=== PATIENT | female | born 1955 | race Caucasian/White ===

== ENCOUNTER → 2019-07-19 18:12 | Outpatient (CLI) | payer OTHER, SELFPAY ==
--- NOTE | 2019-07-19 18:21 | DI.MG.S_ITS ---
BILATERAL DIGITAL SCREENING MAMMOGRAM 3D/2D WITH CAD: 07/19/2019 CLINICAL: Routine screening. Comparison is made to exams dated: 08/22/2016 mammogram, 08/17/2014 mammogram, 11/19/2010 mammogram, and 08/07/2009 mammogram - [facility]. The tissue of both breasts is heterogeneously dense. This may lower the sensitivity of mammography. Current study was also evaluated with a Computer Aided Detection (CAD) system. No significant masses, calcifications, or other findings are seen in either breast. There has been no significant interval change. IMPRESSION: NEGATIVE There is no mammographic evidence of malignancy. A 1 year screening mammogram is recommended. This exam was interpreted at Station ID: [id number]. NOTE: For mammograms, a report in lay terms will be sent to the patient. Approximately 15% of breast malignancies will not be visualized mammographically. In the management of a palpable breast mass, a negative mammogram must not discourage biopsy of a clinically suspicious lesion. Electronically Signed By: Anuel santillan/yuliet:07/19/2019 19:08:33 letter sent: Normal Exam ACR BI-RADS Category 1: Negative 3341F
== END ==
PROVIDERS: Family Provider Family Medicine; PCP Family Medicine; Visit Provider Family Medicine
DX: Z12.31 Encounter for screening mammogram for malignant neoplasm of breast (principal)
CPT/HCPCS: 77063; 77067

== ENCOUNTER → 2019-07-20 09:20 | Outpatient (CLI) | payer OTHER, SELFPAY ==
[2019-07-20 10:09] LABS: Add Manual Diff / Slide Review NO; Basophils Absolute Auto 0 /uL (0-100); Basophils Percent Auto 0.9 % (0-2); Eosinophils Absolute Auto 200 /uL (0-450); Eosinophils Percent Auto 4.1 % (2-4); Hematocrit 40.8 % (36-46); Lymphocytes Absolute Auto 1600 /uL (1100-4500); Lymphocytes Percent Auto 38.6 % (25-40); Mean Corpuscular HGB Conc 34.3 % (30-36); Mean Corpuscular Hemoglobin 32.6 PG (26-34); Monocytes Absolute Auto 400 /uL (0-900); Monocytes Percent Auto 8.5 % (3-14); Neutrophils Absolute Auto 2000 /uL (1500-7000); Neutrophils Percent Auto 47.9 % (50-75); Platelet Count 268 X10^3/uL (150-400); Red Cell Distribution Width 12.2 % (11.6-14.8); White Blood Cell Count 4.2 X10^3/uL (4.5-11.0)
[2019-07-20 10:35] LABS: Alanine Aminotransferase 18 IU/L (<35); Albumin 4.5 g/dL (3.5-5.0); Albumin Globulin Ratio 1.4 (1.0-2.8); Alkaline Phosphatase 77 U/L (38-126); Aspartate Aminotransferase 26 IU/L (14-36); BUN Creatinine Ratio 17.8 (6-22); Blood Urea Nitrogen 16 mg/dL (7-17); Calcium 9.3 mg/dL (8.4-10.2); Carbon Dioxide 29 mmol/L (22-32); Chloride 103 mmol/L (98-107); Cholesterol 246 mg/dL (140-199); Estimated Glomerular Filt Rate > 60.0 mL/min (>60); Globulin 3.2 g/dL (1.7-4.1); Glucose 105 mg/dL (80-110); HDL Cholesterol 74 mg/dL (40-60); HEMOLYSIS < 15 (0-50); LDL Cholesterol Calculated 150 mg/dL (<100); Potassium 3.9 mmol/L (3.4-5.1); Sodium 141 mmol/L (137-145); Total Protein 7.7 g/dL (6.3-8.2); Triglycerides 111 mg/dL (35-150)
[2019-07-20 11:06] LABS: Thyroid Stimulating Hormone 0.87 uIU/mL (0.47-4.68)
== END ==
PROVIDERS: PCP Family Medicine; Visit Provider Family Medicine
DX: Z13.0 Encounter for screening for diseases of the blood and blood-forming organs and certain disorders involving the immune mechanism (principal); Z13.1 Encounter for screening for diabetes mellitus; Z13.220 Encounter for screening for lipoid disorders; Z13.29 Encounter for screening for other suspected endocrine disorder; R89.9 Unspecified abnormal finding in specimens from other organs, systems and tissues
CPT/HCPCS: 36415; 80053; 80061; 84443; 85025

== ENCOUNTER → 2020-09-03 14:28 | Outpatient (CLI) | payer MEDICARE, OTHER, SELFPAY ==
--- NOTE | 2020-09-03 14:30 | DI.RAD.S_ITS ---
PROCEDURE: XR HIP W PEL IF DONE RT 2V INDICATIONS: RIGHT HIP PAIN TECHNIQUE: AP pelvis with lateral view(s) of the right hip(s). COMPARISON: None. FINDINGS: There is a severe degree of degenerative right hip joint osteoarthritis with [id number] articulation at the lateral acetabular roof. Qnah-aa-[id number] hip joint osteoarthritis is present on the left. Bones: No fractures or dislocations. Pelvic ring appears intact. No suspicious bony lesions. Soft tissues: The visualized bowel gas pattern is normal. No suspicious soft tissue calcifications. IMPRESSION: No trauma found but there is quite severe hip joint osteoarthritis on the right with [id number] articulation. Dictated by: Moise Ly M.D. on 09/03/2020 at 15:36 Approved by: Moise Ly M.D. on 09/03/2020 at 15:39
== END ==
PROVIDERS: PCP Family Medicine; Referring Provider Family Medicine; Visit Provider Family Medicine
DX: M25.551 Pain in right hip (principal); M16.0 Bilateral primary osteoarthritis of hip
CPT/HCPCS: 73502

== ENCOUNTER → 2020-09-05 09:08 | Outpatient (CLI) | payer MEDICARE, OTHER, SELFPAY ==
[2020-09-05 10:04] LABS: Alanine Aminotransferase 23 IU/L (<35); Albumin 4.3 g/dL (3.5-5.0); Albumin Globulin Ratio 1.2 (1.0-2.8); Alkaline Phosphatase 70 U/L (38-126); Aspartate Aminotransferase 29 IU/L (14-36); BUN Creatinine Ratio 15.8 (6-22); Bilirubin Total 0.7 mg/dL (0.2-1.3); Blood Urea Nitrogen 12 mg/dL (7-17); Calcium 9.1 mg/dL (8.4-10.2); Carbon Dioxide 31 mmol/L (22-32); Chloride 105 mmol/L (98-107); Cholesterol 243 mg/dL (140-199); Estimated Glomerular Filt Rate > 60.0 mL/min (>60); Globulin 3.5 g/dL (1.7-4.1); Glucose 100 mg/dL (80-110); HDL Cholesterol 88 mg/dL (40-60); HEMOLYSIS < 15 (0-50); LDL Cholesterol Calculated 130 mg/dL (<100); Potassium 4.2 mmol/L (3.4-5.1); Sodium 138 mmol/L (137-145); Total Protein 7.8 g/dL (6.3-8.2); Triglycerides 127 mg/dL (35-150)
[2020-09-05 10:43] LABS: Creatinine Urine Random 78.1 mg/dL
[2020-09-05 10:53] LABS: Hep C Virus Ab w/Reflex Quant REACTIVE s/c (NEGATIVE); Microalbumin Urine Random < 0.6 mg/dL (0-1.6)
== END ==
PROVIDERS: PCP Family Medicine; Referring Provider Family Medicine; Visit Provider Family Medicine
DX: I10 Essential (primary) hypertension (principal); Z11.59 Encounter for screening for other viral diseases
CPT/HCPCS: 36415; 80053; 80061; 82043; 82570; 86803; 87522

== ENCOUNTER → 2020-09-11 13:59 | Outpatient (CLI) | payer MEDICARE, OTHER, SELFPAY ==
[2020-09-11 15:32] LABS: COVID19 -Nasal RAPID Negative (Negative)
== END ==
PROVIDERS: PCP Family Medicine; Visit Provider Specialist
DX: Z20.822 Contact with and (suspected) exposure to COVID-19 (principal)
CPT/HCPCS: 87635; C9803

== ENCOUNTER 2020-09-13 08:55 | Day surgery (SDC) | payer MEDICARE, OTHER, SELFPAY ==
[2020-09-13] VITALS (7 sets, daily range): BP systolic 95–141; BP diastolic 57–87; PULSE 60–84; RESP 12–16; TEMP 36.3–37.1; O2SAT 93–98; BMI 22.1
[2020-09-13] MEDS: LACTATED RINGERS 1,000 ML 200 ML IV (09:36)
--- NOTE | 2020-09-13 10:15 | PM.HP.1 ---
History of Present Illness History of Present Illness Date Patient Seen: 09/13/20 Time Patient Seen: 10:15 Chief complaint: SDC Narrative: The patient is a woman here for screening colonoscopy. Her last exam was 5 years ago. She has a personal history of polyps. Patient History Family & Social History Social History: household members spouse Tobacco & Substance use: Smoking Status Former smoker alcohol intake current alcohol intake frequency 0-2 drinks per day Substance Use Type marijuana Meds Home Medications and Allergies Home Medications Medication Instructions Recorded Confirmed Type biotin 1,000 mcg chewable tablet 1,000 mcg PO DAILY 09/03/20 09/13/20 History glucosamine HCl 1,500 mg tablet 1,500 mg PO DAILY 09/03/20 09/13/20 History calcium citrate 1 mg PO DAILY 09/13/20 09/13/20 History magnesium 1 mg PO DAILY 09/13/20 09/13/20 History multivitamin 1 mg PO DAILY 09/13/20 09/13/20 History Allergies Allergy/AdvReac Type Severity Reaction Status Date / Time morphine AdvReac Intermediate Nausea Verified 09/13/20 09:09 Review of Systems Review of Systems ROS: Yes All systems reviewed with the patient and are negative except as otherwise documented Exam Vital Signs (past 8 hours): - 09/13/20 09:27 Temperature 97.8 F Pulse Rate 84 Respiratory Rate 12 Blood Pressure 141/87 H Pulse Oximetry 98 Oxygen Delivery Method Room Air Narrative Exam Narrative: Pleasant cooperative patient no apparent distress. Lungs are clear to auscultation. No rales or rhonchi. Heart regular rate and rhythm no murmur gallop. Abdomen is soft nontender without mass. No obvious hernias. Patient is alert and oriented x3. Assessment & Plan Assessment & Plan narrative: The patient for a screening colonoscopy. I have discussed the procedure with them. Risks of bleeding, perforation which would necessitate major operation, failure to find remove all lesions, the potential tattoo were all discussed. All questions were answered. They wished to proceed.
--- NOTE | 2020-09-13 10:16 | PM.PREOP ---
Pre-operative Note COVID-19 COVID-19 status: Negative Result date/Date tested (Pos, Neg/Pending): 09/12/20 Interval Note History & Physical reviewed/Exam performed by Physician: Yes Changes to H&P: No ASA Class (for procedural sedation): I
[2020-09-13] MEDS: ONDANSETRON 4 MG/2 ML INJ IV (11:04)
[2020-09-13] MEDS: MIDAZOLAM 5 MG/5 ML VIAL IV (11:05)
--- NOTE | 2020-09-13 11:05 | PM.OP.ENDO ---
Operative Date/Time/Diagnoses Date of procedure: 09/13/20 Time of procedure: 11:05 Pre-op diagnosis: Personal history of polyps. Last colonoscopy 5 years ago. Post-op diagnosis: same Procedure & Clinicians Study performed: Colonoscopy Same procedure as scheduled: Yes Indications: Screening Surgeon: Bucky Kim Procedure Notes SCOAP/Timeout: Performed Procedure in detail: The patient was placed in the left lateral decubitus position and underwent IV sedation directed by the surgeon consisting of fentanyl and Versed. Digital exam was unremarkable. The scope was inserted and advanced through the rectum into the sigmoid, descending, transverse, and ascending colon. There was extensive pancolonic diverticulosis noted.. The cecum was reached identified by the ileocecal valve and the appendiceal opening The scope was gradually brought out. No Polyps were found. The scope ultimately was retroflexed in the rectum. The appearance was remarkable for small internal hemorrhoids without ulceration.. The scope was removed and the patient tolerated the procedure well. The prep was very good. Scope withdrawal time: 8 minutes Sedation minutes: 21 Findings: diverticulosis (Ariza colonic) and internal hemorrhoids (Small) Specimen(s): none sent Complications: none Post-procedure Recommendations: Colonscopy in 5 years Follow up: as needed Disposition: PACU
[2020-09-13] MEDS: fentaNYL 250 MCG/5 ML INJ IV (11:06)
== END 2020-09-13 12:05 | disposition home or self-care (01) ==
PROVIDERS: PCP Family Medicine; Referring Provider Family Medicine; Visit Provider Specialist
PROC: 0DJD8ZZ Inspection of Lower Intestinal Tract, Via Natural or Artificial Opening Endoscopic (ICD-10-PCS; CPT 45378; principal; 2020-09-13 10:00)
DX: Z12.11 Encounter for screening for malignant neoplasm of colon (principal); Z86.010 Personal history of colon polyps; K57.30 Diverticulosis of large intestine without perforation or abscess without bleeding; K64.8 Other hemorrhoids
CPT/HCPCS: G0121; 99152; J2250; J2405; J3010

== ENCOUNTER → 2020-09-21 12:14 | Outpatient (CLI) | payer MEDICARE, OTHER, SELFPAY ==
[2020-09-21 12:53] LABS: Add Manual Diff / Slide Review NO; Basophils Absolute Auto 0 /uL (0-100); Eosinophils Absolute Auto 100 /uL (0-450); Eosinophils Percent Auto 2.2 % (2-4); Hematocrit 39.4 % (36-46); Hemoglobin 13.1 g/dL (12.0-16.0); Lymphocytes Absolute Auto 1600 /uL (1100-4500); Lymphocytes Percent Auto 38.7 % (25-40); Mean Corpuscular HGB Conc 33.3 % (30-36); Mean Corpuscular Hemoglobin 30.9 PG (26-34); Mean Corpuscular Volume 92.7 fL (80-100); Monocytes Absolute Auto 400 /uL (0-900); Monocytes Percent Auto 9.1 % (3-14); Neutrophils Absolute Auto 2100 /uL (1500-7000); Platelet Count 245 X10^3/uL (150-400); Red Blood Cell Count 4.25 X10^6/uL (4.0-5.2); Red Cell Distribution Width 12.7 % (11.6-14.8); White Blood Cell Count 4.2 X10^3/uL (4.5-11.0)
[2020-09-21 12:58] LABS: BUN Creatinine Ratio 21.6 (6-22); Blood Urea Nitrogen 16 mg/dL (7-17); Calcium 9.2 mg/dL (8.4-10.2); Carbon Dioxide 31 mmol/L (22-32); Chloride 104 mmol/L (98-107); Estimated Glomerular Filt Rate > 60.0 mL/min (>60); Glucose 96 mg/dL (80-110); HEMOLYSIS < 15 (0-50); Potassium 4.3 mmol/L (3.4-5.1); Sodium 137 mmol/L (137-145)
[2020-09-21 13:00] LABS: Hemoglobin A1C% w Est Avg Glu 5.2 % (4.0-6.0)
== END ==
PROVIDERS: PCP Family Medicine; Referring Provider Orthopaedic Surgery Adult Reconstructive Orthopaedic Surgery; Visit Provider Orthopaedic Surgery Adult Reconstructive Orthopaedic Surgery
DX: Z01.812 Encounter for preprocedural laboratory examination (principal); R73.9 Hyperglycemia, unspecified
CPT/HCPCS: 36415; 80048; 83036; 85025

== ENCOUNTER → 2020-09-25 12:21 | Outpatient (CLI) | payer MEDICARE, OTHER, SELFPAY ==
--- NOTE | 2020-09-25 12:23 | DI.MG.S_ITS ---
BILATERAL DIGITAL SCREENING MAMMOGRAM 3D/2D WITH CAD: 09/25/2020 CLINICAL: Routine screening. Comparison is made to exams dated: 07/19/2019 mammogram, 08/22/2016 mammogram, and 08/17/2014 mammogram - [facility]. The tissue of both breasts is heterogeneously dense. This may lower the sensitivity of mammography. Current study was also evaluated with a Computer Aided Detection (CAD) system. There are stable benign calcifications in the left breast. No significant masses, calcifications, or other findings are seen in either breast. There has been no significant interval change. IMPRESSION: BENIGN There is no mammographic evidence of malignancy. A 1 year screening mammogram is recommended. This exam was interpreted at Station ID: [id number]. NOTE: For mammograms, a report in lay terms will be sent to the patient. Approximately 15% of breast malignancies will not be visualized mammographically. In the management of a palpable breast mass, a negative mammogram must not discourage biopsy of a clinically suspicious lesion. Electronically Signed By: Johnnie Heart acr/yuliet:09/25/2020 13:23:13 letter sent: Normal Exam ACR BI-RADS Category 2: Benign Finding(s) 3342F
== END ==
PROVIDERS: PCP Family Medicine; Referring Provider Family Medicine; Visit Provider Family Medicine
DX: Z12.31 Encounter for screening mammogram for malignant neoplasm of breast (principal); M85.852 Other specified disorders of bone density and structure, left thigh; Z78.0 Asymptomatic menopausal state; I10 Essential (primary) hypertension; Z87.891 Personal history of nicotine dependence
CPT/HCPCS: 77063; 77067; 77080

== ENCOUNTER → 2020-10-08 11:07 | Outpatient (CLI) | payer MEDICARE, OTHER, SELFPAY ==
[2020-10-08 13:10] LABS: COVID19 -Nasal RAPID Negative (Negative)
== END ==
PROVIDERS: PCP Family Medicine; Visit Provider Physician Assistant
DX: Z01.812 Encounter for preprocedural laboratory examination (principal); Z20.822 Contact with and (suspected) exposure to COVID-19
CPT/HCPCS: 87635; C9803

== ENCOUNTER 2020-10-10 05:58 | Day surgery (SDC) | payer MEDICARE, OTHER, SELFPAY ==
[2020-10-10] VITALS (19 sets, daily range): BP systolic 71–160; BP diastolic 46–84; PULSE 60–82; RESP 12–20; TEMP 36.1–36.8; O2SAT 90–100; BMI 22.2
[2020-10-10] MEDS: LACTATED RINGERS 1,000 ML 42 ML IV (07:31)
--- NOTE | 2020-10-10 07:35 | PM.PREOP ---
Pre-operative Note COVID-19 COVID-19 status: Negative Result date/Date tested (Pos, Neg/Pending): 10/08/20 Interval Note History & Physical reviewed/Exam performed by Physician: Yes Changes to H&P: No H&P completed within 30 days and has changed as indicated here:: Plan for right anterior LUCRETIA
[2020-10-10] MEDS: CEFAZOLIN 2 GM/100 ML FROZ.PIGGY IV ×2 (07:48→16:42)
--- NOTE | 2020-10-10 08:00 | DI.RAD.S_ITS ---
PROCEDURE: XR PELVIS 1-2V INDICATIONS: RIGHT ANTERIOR HIP TECHNIQUE: 1 view of the lower pelvis acquired. COMPARISON: [facility] [place], CR, XR PELVIS 1 OR 2 VIEWS, 09/11/2020, 11:38. FINDINGS: Bones: Patient is status post right total hip arthroplasty, with hardware components in expected positions. The hip joint appears congruent. The visualized bony structures appear intact. Degenerative change of the left hip. Soft tissues: Overlying postoperative changes are noted. No suspicious soft tissue densities. IMPRESSION: Satisfactory appearance of the right total hip arthroplasty. Dictated by: Anuel Rogers M.D. on 10/10/2020 at 11:15 Approved by: Anuel Rogers M.D. on 10/10/2020 at 11:16
--- NOTE | 2020-10-10 08:26 | SUR.OPER ---
Supine on padded [place] table with bilateral legs secured in padded positioning boots and suspended in positioning spars, operative leg in traction per surgeon. Head on one pillow. Arm on non-operative side secured on padded armboard <90 degrees abduction. Arm on operative side padded and resting across chest then secured with tape over sheet. Padded perineal post in place per surgeon.
[2020-10-10] MEDS: ROPIVACAINE 0.5% PF 5 MG/ML 20ML VIAL 40 ML INJ (08:50)
[2020-10-10] MEDS: KETOROLAC 30 MG/ML VIAL INJ (08:51)
[2020-10-10] MEDS: MORPHINE 4 MG/ML INJ INJ (08:52)
[2020-10-10] MEDS: SODIUM CHLORIDE IRRIG SOLUTION 250 ML, POVIDONE-IODINE SPONGE STICKS 1 APPLIC IRR (09:08)
--- NOTE | 2020-10-10 10:08 | P.OP_ITS ---
Operative Date/Time/Diagnoses Date of procedure: 10/10/20 Time of procedure: 10:08 Pre-op diagnosis: right hip OA Post-op diagnosis: same Procedure & Clinicians Procedure: Right anterior LUCRETIA Same procedure as scheduled: Yes Indications: right hip OA Surgeon: Richard Espitia Educational Paraprofessional: Brice Archer Anesthesia Type: General and Spinal Operative Notes Findings: Right hip osteoarthritis with eburnation of the subchondral bone as well as head osteophytes. Closure Type: primary Specimen(s): none sent Prosthetic devices, grafts, tissues, transplants, or devices: Viveros and nephew 50 mm R3 cup 50 x 32 mm neutral offset polyethylene liner 1x 35mm screw 1x 30mm screw 1x 20mm screw Size 5 standard offset anthology stem Oxinium 32-3 femoral head Estimated Blood Loss (mL): 200 Procedure in detail: Patient was met in the preoperative holding area where the site and side of surgery were marked by . All last minute questions were answered. Her informed consent had been signed in clinic but was also reviewed the preoperative holding area. Patient was then brought back in the operating room work room where she received a spinal anesthetic she was then induced under general anesthesia on the [place] table. Bilateral feet were then well padded and placed in [place] table boots. The right lower extremity was then prepped and draped in normal sterile fashion. A surgical time-out was performed verifying the site and side of surgery as well as the name of the patient. A 7 cm long incision approximately 2 cm distal and 1 cm lateral to the ASIS aiming towards the fibular head remains in using 10. Blade. Electrocautery was used to dissect down to the level the tensor fascia. A new 10. Blade was then used to incise the tensor fascia and Allis clamp was placed on the medial leaflet the tensor muscle itself was then reflected laterally. A Cobra was then placed over the superior aspect of the femoral neck and then Meyerding was then placed over the lateral aspect of the rectus femoris and retracted medially. This gave us exposure to the ascending branches of the femoral circumflex vessels these were coagulated using electrocautery. A 2nd Cobra retractor was then placed under the inferior aspect of the femoral neck and a bent Hohmann was placed over the superior lip of the acetabulum to give us good exposure to the anterior capsule. Inverted T-shaped capsulotomy was then performed in the superior and inferior leaflets were tagged with FiberWire suture. Cobra retractors were then moved intracapsularly. This gave us good exposure to the femoral neck. A reciprocating saw was then used to make a femoral neck cut. This neck cut length was based off our preoperative template. Bent Hohmann retractors then placed over the superior lip of the acetabulum as well as the posterior lip of the acetabulum because good acetabular exposure. Pulvinar was then removed using electrocautery and suction. I began reaming with a 42 mm Reamer tip set medialized down to the base the fossa. I then brought in fluoroscopy to guide reaming. Our fluoroscopic images were match to her standing preoperative template films. We then reamed with a 44 followed by 5 by 2s up to a size 48. At this 0.49 mm Reamer was then reamed to final time and a 50 mm R3 cup was then selected. This was placed under fluoroscopic guidance. The cup had okay purchase but it was not great. For this reason I placed 3 screws. All screws had good purchase. A 52 by 32 neutral offset liner was then impacted verifying the all the tabs were well seated within the acetabular cup. I then turned my attention to the femoral side a femoral elevator hook was placed under the posterior aspect of the femur the femur was then externally rotated to 120? extended to the floor and adducted. A bent Hohmann was placed over the superior aspect of the superior leaflet the capsulotomy and the capsulotomy was further released off the shoulder of the greater trochanter. A large single prong retractor was then placed over the greater trochanter and a M ueller retractor was placed over the calcar to give us good exposure. A controlled release of the short external rotators was then performed in the LL and the femur was able to be elevated further up into the incision. A canal finer was then used followed by ursula barney broach followed by 1. Broach up to a size 5. A size 5 we calcar reamed. Placed a standard offset neck with a 32+ 0 head and reduced the hip fluoroscopy was brought in we were long bike probably half a cm. The hip was then dislocated the trials were removed and a size 4 broach was then countersunk and calcar planed down to level of countersink. We then replaced with a size 5 broach and trialed again with a 32-3 head. This was stable with maximal external rotation as well as 90? of external rotation and full extension to the floor. We were still a couple mm long the due to the laxity in her hip I do not want to make hernia shorter as I believe she will have instability. Trial components removed a size 5 anthology stem was placed followed by 32-3 Oxinium head on the trunnion. This was then reduced a final time local anesthetic was then infiltrated into the superior and inferior leaflets of the capsule and Betadine solution was placed into the wound allowed to sit for several minutes prior to being lavage away with copious normal saline. The capsulotomy was then repaired using a running Ethibond suture followed by repair of the tensor fascia using a #0 running locking Vicryl followed by 2-0 Vicryl in the subcutaneous layer followed by 3-0 Stratafix in subcuticular layer followed by Dermabond and Aquacel dressing. Complications: none Post-operative Condition: stable Disposition: PACU Plan for aftercare: 24 hours post-op abx, WBAT RLE, anterior hip precautions, ASA 81mg BID for 6 weeks for DVT prophylaxis
[2020-10-10] MEDS: LORazepam 2 MG/ML INJ 0.25 MG IV (10:39)
[2020-10-10] MEDS: fentaNYL 100 MCG/2 ML INJ IV (10:52)
[2020-10-10] MEDS: ONDANSETRON 4 MG/2 ML INJ IV (10:58)
--- NOTE | 2020-10-10 11:14 | SUR.PHASEI ---
Report called to KANIKA Gerard. Pt feeling better with her right shoulder pain now and Dr Brannon and Dr Espitia by earlier suggested Fentanyl iv which was given and pt does state pain better now. Plan to take up to room in 10 minutes
--- NOTE | 2020-10-10 11:19 | SUR.PHASEI ---
Pt transferred to floor by malka Murillo and roberto Hernandez in stable condition with no c/o
[2020-10-10] MEDS: LACTATED RINGERS 1,000 ML 125 ML IV (12:30)
--- NOTE | 2020-10-10 12:44 | PC.ADMIT ---
Addendum entered by Rajani Mancilla R.N. 10/10/20 14:44: Pt is up with PT ambulating in [place] and on her way to do stairs so that patient can d/c home this pm. Admission complete. Pt denies pain and has not voided at this time. Original Note: [email or web address] [place] Admission Note:Pt arrived from PACU with no pain, Spinal effective soft BPs, no nausea and minimal c/o pain to L shoulder, this has been reported to Nupur, who saw Pt in PACU and does feel this is positional r/t surgery. CMS + x4 PP +, brisk DISTRIBUTION TECHNICIAN. The patient,Tootie Mead,65 y/o, was given written information regarding hospital policies, unit procedures and contact persons. Patient's smoking status: Former smoker. Vital Signs - 8 hr 10/10/20 06:48 10/10/20 10:20 10/10/20 10:22 Temperature 97.0 F L 98.2 F Pulse Rate 70 79 80 Respiratory Rate 17 12 13 Blood Pressure 160/84 H 71/46 L 78/49 L Pulse Oximetry 100 90 L 99 10/10/20 10:24 10/10/20 10:30 10/10/20 10:35 Temperature Pulse Rate 77 64 66 Respiratory Rate 17 15 16 Blood Pressure 78/49 L 89/53 L 91/57 L Pulse Oximetry 99 100 100 10/10/20 10:40 10/10/20 10:45 10/10/20 10:50 Temperature Pulse Rate 64 63 62 Respiratory Rate 14 15 20 Blood Pressure 93/60 109/60 117/62 Pulse Oximetry 100 100 100 10/10/20 10:52 10/10/20 11:00 10/10/20 11:15 Temperature 97.3 F L 97.2 F L Pulse Rate 60 61 Respiratory Rate 16 18 Blood Pressure 116/63 106/58 L Pulse Oximetry 100 100 10/10/20 11:30 10/10/20 11:58 Temperature 98.0 F Pulse Rate 66 Respiratory Rate 17 Blood Pressure 103/59 L Pulse Oximetry 95 96
--- NOTE | 2020-10-10 13:31 | PT.IIE ---
Current Diagnoses Unilateral primary osteoarthritis, right hip (10/10/20) Surgery Performed Operation Date: 10/10/20 07:45 Actual Procedures p Total Hip Arthroplasty/Anterior Approach(Right) - Richard Espitia MD Surgical History (Last Updated 10/01/20 @ 15:07 by Franca Maldonado, RN) H/O wrist surgery History of brain surgery (~1985) History of History of colonoscopy (~09/13/20) Medical History (Last Updated 10/01/20 @ 15:21 by Franca Maldonado, RN) Brain aneurysm (~1985) Former smoker History of colon polyps Osteopenia Primary osteoarthritis of right hip Ringing in ears Physical Therapy Inpatient Evaluation/Re-Eval M1 PT/OT-IP Prior Functional Status Start: 10/10/20 15:01 Freq: NEEDED Status: Active Protocol: Document 10/10/20 13:31 AB (Rec: 10/10/20 15:33 AB [id number]) Medical Review Prior Functional Status Medical History Reviewed Yes Communication able to make needs known Mobility and Gait pt stated that she is independent with all mobilities and ambulation without AD Social History Household Members spouse Living Arrangements House Number of Floors (Floors) 3 or More Floors Number of Stairs To Enter/Railing? no steps to enter but has 13 steps with L rail to get to main level of the house Home Environment Standard Height Toilet,High Toilet,Walk in Shower,Tub/ Shower Home Equipment Shower Seat without Backrest Additional Social History Comment has a standard walker, and one forearm crutch M2 PT-IP Current Condition Start: 10/10/20 15:01 Freq: NEEDED Status: Active Protocol: Document 10/10/20 13:31 AB (Rec: 10/10/20 15:33 AB [id number]) Physical Therapy Current Condition Current Condition Evaluation Date 10/10/20 Treatment Diagnosis s/p R LUCRETIA anterior approach; difficulty in walking Onset Date 10/10/20 Precautions Anterior Hip Precautions No Hip Extension,No Hip External Rotation Weight Bearing Status Weight Bearing Status Weight Bear as Tolerated Allowed Weight Bearing Amount (enter % RLE WBAT or #) (%) M3 PT-IP Subjective Start: 10/10/20 15:01 Freq: NEEDED Status: Active Protocol: Document 10/10/20 13:31 AB (Rec: 10/10/20 15:33 AB [id number]) Subjective Physical Therapy Visit Type Type Initial Evaluation Visit Start Time 13:31 Visit Stop Time 14:53 Total Visit Minutes 82 Number of SECURITIES SETTLEMENT PROCESSOR Visits 0 Physical Therapy Visit Comments Patient Comments pt is agreeable to do PT; stated that she wants to go home later today Therapy Pain Assessment Pain When Pain Assessed At Rest Pain Present Pain Present Pain Reported Location Right Posterior Hip Intensity 3 Scale Used Numeric (0 - 10) Pain Management Techniques Apply Cold,Modification of Treatment,Re-positioning, Timing of Activity with Medications M4 PT-IP Mobility and Gait Start: 10/10/20 15:01 Freq: NEEDED Status: Active Protocol: Document 10/10/20 13:31 AB (Rec: 10/10/20 15:33 AB [id number]) PT-Bed Mobility Assessment Supine to Sit Supine to Sit Standby Assistance Sit to Supine Sit to Supine Standby Assistance Scooting Scooting to Edge of Bed Standby Assistance PT-Transfer Assessment Sit to and From Stand Sit to and from Stand Standby Assistance,Contact Guard Assistance,1 Person Assistance,Use of Upper Extremities Equipment Transfer Assistive Device Gait Belt,Standard Walker Orthotic/Prosthetic Devices or Brace: No Transfers Transfer Destination Toilet Transfer Technique ambulated using standard walker Transfer Ability Level of Assist Standby Assistance,Contact Guard Assistance,1 Person Assistance,Use of Upper Extremities Comments Mobility Comments educated on hip precautions and provided with post-op folder. pt has a standard walker in her room and stated that she does not have a FWW. completed supine to sit SBA. pt was able to sit on EOB SBA . completed sit to stand CGA and ambulated in room using standard walker CGA. pt requires cues for hip precautions. agreed to do stairs. ambulated in hallway using standard walker 75 ft SBA to occasionally CGA and initial cues for hip precautions. educated on stair climbing. pt completed up/down steps holding on to L rail with B hands CGA and completed 2 sets . assisted pt back to her room. requested to use the toilet. ambulated using standard walker 20 ft SBA. completed toileting SBA and ambulated to the sink using std walker SBA and completed handwashing SBA . requested to go back to bed . completed sit to supine SBA. positioned in bed. call light and table placed within reach . reviewed precautions and which LE to move forward first with ambulation and which one ot backup first. pt continues to be confused. wrote down instructions and taped on pt's walker as visual reminder. informed nurse regarding pt's mobility level. Gait Assessment Gait Gait Assistance Required: Standby Assistance,Contact Guard Assist Distance (Feet) 75 Able to Maintain Weight Bearing Status Yes During Gait Assistive Devices Assistive Device Gait Belt,Standard Walker Orthotic/Prosthetic Devices or Brace: No Gait Deviations General Gait Pattern Antalgic,Decreased Feet Clearance Factors Limiting Gait Function Factors Limiting Gait Function Decreased Activity Tolerance, Decreased Strength,Limited Range of Motion,Pain,Poor Balance,Poor Safety Awareness Stair Climbing Assessment Evaluation Level of Assist On Stairs Contact Guard Assistance Devices Stair Climbing Assistive Devices Left Railing Technique/Endurance Stair Climbing Direction Ascend and Descend Stair Climbing Technique Step to Step Number of Steps Climbed 3 Query Text: Stair Climbing Set # Repetitions (reps) 2 PT-Balance Assessment Sitting Balance and Reactions Static Sitting Balance Ability Good Dynamic Sitting Balance Ability Good Standing Balance and Reactions Static Standing Balance Ability Fair Dynamic Standing Balance Ability Fair Device Used std walker M5 PT-IP Objective Assessments Start: 10/10/20 15:01 Freq: NEEDED Status: Active Protocol: Document 10/10/20 13:31 AB (Rec: 10/10/20 15:33 AB [id number]) Orientation Orientation/Cognition Level of Alertness Alert Orientation Name,Place,Situation Language Function Ability No Deficits Noted Safety Awareness Decreased Safety Awareness Memory Description Short Term Impaired Gross Range of Motion Lower Extremity ROM Assessment Within Functional Limits Strength Lower Extremity Strength Assessment Right Impaired Hip 3+/5 Knee 4+/5 Coordination Assessment Gross Coordination Gross Coordination WNL Muscle Tone Muscle Tone WNL Yes M6 PT-IP Treatment Start: 10/10/20 15:01 Freq: NEEDED Status: Active Protocol: Document 10/10/20 13:31 AB (Rec: 10/10/20 15:33 AB [id number]) Physical Therapy Treatment Education Education Provided Precautions,Weight Bearing Status,Post-Op Packet,Safety M7 PT-IP Assessment and Plan Start: 10/10/20 15:01 Freq: NEEDED Status: Active Protocol: Document 10/10/20 13:31 AB (Rec: 10/10/20 15:33 AB [id number]) PT Summary Assessment and Plan Potential Rehabilitation Potential Good Status of Condition at Evaluation Stable Summary Impairments Pain,ROM,Strength,Balance, Coordination,Sensation, Cognition,Bed Mobility, Transfers,Gait,Activity Tolerance Assessment Summary pt requiring SBA to CGA with mobility using std walker and plans to go home with spouse to assist her. pt stated that she has outpt PT already set up. pt may go [facility] when medically stable. Goals Bed Mobility Goal Independent Transfer Goal Independent Gait Goal Independent Gait Distance 200 Other Goals independent ambulation using std walker up/down 13 steps L rail mod I Days to Meet Goals 3 Frequency of Treatment Frequency Of Treatment Twice a Day Treatment Plan Physical Therapy Treatment Plan Bed Mobility Training,Transfer Training,Gait Training, Therapeutic Exercise,Balance Retraining,Post Op Education, Discharge Planning,Hot or Cold Pack,Neuromuscular Re-ed, Coordination Retraining,Manual Therapy Recommendations To Nursing Amount of Assist Needed 1 Person Assist Discharge Recommendations PT Discharge Recommendations Home with Assistance, Outpatient PT Transportation Needs at Discharge Private Vehicle
[2020-10-10 15:06] LABS: Add Manual Diff / Slide Review NO; Basophils Absolute Auto 0 /uL (0-100); Basophils Percent Auto 0.1 % (0-2); Eosinophils Absolute Auto 0 /uL (0-450); Eosinophils Percent Auto 0.1 % (2-4); Hematocrit 33.6 % (36-46); Hemoglobin 11.1 g/dL (12.0-16.0); Lymphocytes Absolute Auto 500 /uL (1100-4500); Lymphocytes Percent Auto 4.9 % (25-40); Mean Corpuscular HGB Conc 32.9 % (30-36); Mean Corpuscular Hemoglobin 31.4 PG (26-34); Mean Corpuscular Volume 95.2 fL (80-100); Monocytes Absolute Auto 400 /uL (0-900); Monocytes Percent Auto 3.6 % (3-14); Neutrophils Absolute Auto 10200 /uL (1500-7000); Neutrophils Percent Auto 91.3 % (50-75); Platelet Count 220 X10^3/uL (150-400); Red Blood Cell Count 3.53 X10^6/uL (4.0-5.2); Red Cell Distribution Width 12.8 % (11.6-14.8); White Blood Cell Count 11.2 X10^3/uL (4.5-11.0)
[2020-10-10] MEDS: ACETAMINOPHEN 325 MG TABLET 650 MG PO (16:41)
== END 2020-10-10 17:51 | disposition home or self-care (01) ==
LOC: OR 06:04 → AC 06:09
PROVIDERS: PCP Family Medicine; Referring Provider Family Medicine; Visit Provider Orthopaedic Surgery Adult Reconstructive Orthopaedic Surgery
PROC: (CPT 27130; principal; 2020-10-10 07:45)
DX: M16.11 Unilateral primary osteoarthritis, right hip (principal); M25.751 Osteophyte, right hip; M81.0 Age-related osteoporosis without current pathological fracture
CPT/HCPCS: 27130; 36415; 72170; 76000; 85025; 97116; 97161; 97530; C1776; J0690; J1100; J1885; J2060; J2270; J2405; J2704; J3010

== ENCOUNTER → 2022-01-21 08:01 | Outpatient (CLI) | payer MEDICARE, OTHER, SELFPAY ==
[2020-10-10 14:21] VITALS: BMI 22.2
[2022-01-21 08:42] LABS: Add Manual Diff / Slide Review NO; Basophils Absolute Auto 0 /uL (0-100); Basophils Percent Auto 1.1 % (0-2); Eosinophils Absolute Auto 200 /uL (0-450); Eosinophils Percent Auto 5.5 % (2-4); Hematocrit 40.2 % (36-46); Hemoglobin 13.5 g/dL (12.0-16.0); Lymphocytes Absolute Auto 1800 /uL (1100-4500); Mean Corpuscular HGB Conc 33.6 % (30-36); Mean Corpuscular Hemoglobin 31.4 PG (26-34); Mean Corpuscular Volume 93.6 fL (80-100); Monocytes Absolute Auto 400 /uL (0-900); Monocytes Percent Auto 9.4 % (3-14); Neutrophils Absolute Auto 1400 /uL (1500-7000); Platelet Count 251 X10^3/uL (150-400); Red Blood Cell Count 4.29 X10^6/uL (4.0-5.2); Red Cell Distribution Width 12.6 % (11.6-14.8); White Blood Cell Count 3.8 X10^3/uL (4.5-11.0)
[2022-01-21 09:15] LABS: Glucose 101 mg/dL (80-110)
== END ==
PROVIDERS: PCP Family Medicine; Referring Provider Family Medicine; Visit Provider Family Medicine
DX: Z13.1 Encounter for screening for diabetes mellitus; D64.9 Anemia, unspecified
CPT/HCPCS: 36415; 82947; 85025

== ENCOUNTER → 2022-12-26 09:43 | Outpatient (CLI) | payer MEDICARE, OTHER, SELFPAY ==
[2020-10-10 14:21] VITALS: BMI 22.2
[2022-12-26 11:54] LABS: Hematocrit 39.8 % (36-46); Hemoglobin 13.6 g/dL (12.0-16.0); Mean Corpuscular HGB Conc 34.1 % (30-36); Mean Corpuscular Hemoglobin 32.1 PG (26-34); Mean Corpuscular Volume 94.1 fL (80-100); Platelet Count 240 X10^3/uL (150-400); Red Blood Cell Count 4.23 X10^6/uL (4.0-5.2); Red Cell Distribution Width 12.8 % (11.6-14.8); White Blood Cell Count 4.2 X10^3/uL (4.5-11.0)
[2022-12-26 14:38] LABS: Alanine Aminotransferase 24 IU/L (<35); Albumin 4.2 g/dL (3.5-5.0); Albumin Globulin Ratio 1.2 (1.0-2.8); Alkaline Phosphatase 64 U/L (38-126); Aspartate Aminotransferase 30 IU/L (14-36); BUN Creatinine Ratio 19.7 (6-22); Bilirubin Total 0.7 mg/dL (0.2-1.3); Blood Urea Nitrogen 15 mg/dL (7-17); Calcium 8.7 mg/dL (8.4-10.2); Carbon Dioxide 28 mmol/L (22-32); Chloride 104 mmol/L (98-107); Cholesterol 223 mg/dL (140-199); Estimated Glomerular Filt Rate > 60 mL/min (>60); Globulin 3.4 g/dL (1.7-4.1); Glucose 89 mg/dL (80-110); HDL Cholesterol 81 mg/dL (40-60); HEMOLYSIS < 15 (0-50); LDL Cholesterol Calculated 128 mg/dL (<100); Potassium 4.4 mmol/L (3.4-5.1); Sodium 139 mmol/L (137-145); Total Protein 7.6 g/dL (6.3-8.2); Triglycerides 71 mg/dL (35-150)
[2022-12-26 17:58] LABS: Neutrophils Absolute Manual 2184 /uL (3000-5900); Total Cells Counted 100
[2022-12-26 17:59] LABS: RBC Morphology Normal Morphology
== END ==
PROVIDERS: PCP Family Medicine; Referring Provider Family Medicine; Visit Provider Family Medicine
DX: D70.9 Neutropenia, unspecified (principal); E78.9 Disorder of lipoprotein metabolism, unspecified; I10 Essential (primary) hypertension; Z79.899 Other long term (current) drug therapy
CPT/HCPCS: 36415; 80053; 80061; 85025

== ENCOUNTER → 2023-02-02 14:02 | Outpatient (CLI) | payer MEDICARE, OTHER, SELFPAY ==
[2020-10-10 14:21] VITALS: BMI 22.2
--- NOTE | 2023-02-02 14:06 | DI.MG.S_ITS ---
BILATERAL DIGITAL SCREENING MAMMOGRAM 3D/2D WITH CAD: 02/02/2023 CLINICAL: Routine screening. Comparison is made to exams dated: 09/25/2020 mammogram, 07/19/2019 mammogram, and 08/22/2016 mammogram - [facility]. Both breasts are heterogeneously dense, which may obscure small masses (category c / 51-75% glandular tissue). Current study was also evaluated with a Computer Aided Detection (CAD) system. There are benign calcifications in both breasts. No significant masses, calcifications, or other findings are seen in either breast. There has been no significant interval change. IMPRESSION: BENIGN There is no mammographic evidence of malignancy. A 1 year screening mammogram is recommended. Based on the Tyrer Cuzick model (a risk assessment model) the patient's lifetime risk is 11.4% and her 10 year risk is 6.1%. According to the ACR, ACS, and NCCN guidelines, an annual breast MRI exam along with mammogram is recommended if the patient's lifetime risk is 20% or greater. This exam was interpreted at Station ID: [id number]. NOTE: For mammograms, a report in lay terms will be sent to the patient. Approximately 15% of breast malignancies will not be visualized mammographically. In the management of a palpable breast mass, a negative mammogram must not discourage biopsy of a clinically suspicious lesion. Electronically Signed By: Yaa gentile/yuliet:02/02/2023 16:19:57 letter sent: Normal Exam ACR BI-RADS Category 2: Benign Finding(s) [id number]
== END ==
PROVIDERS: PCP Family Medicine; Referring Provider Family Medicine; Visit Provider Family Medicine
DX: Z12.31 Encounter for screening mammogram for malignant neoplasm of breast (principal); D72.89 Other specified disorders of white blood cells
CPT/HCPCS: 36415; 77063; 77067

== ENCOUNTER → 2024-02-04 11:14 | Outpatient (CLI) | payer MEDICARE, OTHER, SELFPAY ==
[2023-12-23 09:09] VITALS: BMI 22.2
--- NOTE | 2024-02-04 11:16 | DI.MG.S_ITS ---
BILATERAL DIGITAL SCREENING MAMMOGRAM 3D/2D WITH CAD: 02/04/2024 CLINICAL: Routine screening. Comparison is made to exams dated: 02/02/2023 mammogram, 09/25/2020 mammogram, and 07/19/2019 mammogram - [facility]. Both breasts are heterogeneously dense, which may obscure small masses (category c / 51-75% glandular tissue). Current study was also evaluated with a Computer Aided Detection (CAD) system. There are benign calcifications in both breasts. No significant masses, calcifications, or other findings are seen in either breast. There has been no significant interval change. IMPRESSION: BENIGN There is no mammographic evidence of malignancy. A 1 year screening mammogram is recommended. Based on the Tyrer Cuzick model (a risk assessment model) the patient's lifetime risk is 10.8% and her 10 year risk is 6.1%. According to the ACR, ACS, and NCCN guidelines, an annual breast MRI exam along with mammogram is recommended if the patient's lifetime risk is 20% or greater. This exam was interpreted at Station ID: [id number]. NOTE: For mammograms, a report in lay terms will be sent to the patient. Approximately 15% of breast malignancies will not be visualized mammographically. In the management of a palpable breast mass, a negative mammogram must not discourage biopsy of a clinically suspicious lesion. Electronically Signed By: Nick banks/yuliet:02/04/2024 12:46:10 letter sent: Normal Exam ACR BI-RADS Category 2: Benign Finding(s) [id number]
== END ==
PROVIDERS: PCP Family Medicine; Referring Provider Family Medicine; Visit Provider Family Medicine
DX: Z12.31 Encounter for screening mammogram for malignant neoplasm of breast (principal); R92.333 Mammographic heterogeneous density, bilateral breasts
CPT/HCPCS: 77063; 77067

== ENCOUNTER 2024-02-10 13:09 | Emergency (ER) | payer MEDICARE, OTHER, SELFPAY ==
[2023-12-23 09:09] VITALS: BMI 22.2
[2024-02-10 13:12] VITALS: BP 176/80; PULSE 95; RESP 16; TEMP 37.1; O2SAT 99; BMI 21.2
--- NOTE | 2024-02-10 13:29 | DI.CT.S_ITS ---
PROCEDURE: CT CERVICAL SPINE WO CON INDICATIONS: fall,head injury,neck pain TECHNIQUE: Noncontrast 3 mm thick sections acquired from the skull base to the T4 level. Sagittal and coronal reformats were then constructed. For radiation dose reduction, the following was used: automated exposure control, adjustment of mA and/or kV according to patient size. COMPARISON: None. FINDINGS: Image quality: Excellent. Bones: No fractures or dislocations. Loss of normal cervical lordosis. Mild levoscoliosis. There is grade 1 anterolisthesis of C4 on C5 and trace anterolisthesis of C3 on C4. Multilevel degenerative disc disease, moderate at C5-C6 and C6-C7, mild at other levels. Severe bilateral facet arthropathy, most pronounced at C2-C3, C3-C4 and C4-C5. 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 Soft tissues: Prevertebral soft tissues are normal in thickness. No paravertebral hematomas. No apical pneumothoraces. IMPRESSION: 1. No displaced fracture or traumatic subluxation. 2. Spondylitic changes as described. Dictated by: Taylor Mcclain M.D. on 02/10/2024 at 13:20 Approved by: Taylor Mcclain M.D. on 02/10/2024 at 13:28
--- NOTE | 2024-02-10 13:29 | DI.CT.S_ITS ---
PROCEDURE: CT HEAD/BRAIN WO CON INDICATIONS: fall,head injury,neck pain TECHNIQUE: Noncontrast 4.5 mm thick angled axial sections acquired from the foramen magnum to the vertex, with coronal and sagittal reformats. For radiation dose reduction, the following was used: automated exposure control, adjustment of mA and/or kV according to patient size. COMPARISON: None. FINDINGS: Image quality: Diagnostic. CSF spaces: Surgical changes in the right basal cyst in and sylvian fissure, probably related prior aneurysm clipping. Basal cisterns are patent. No extra-axial fluid collections. The ventricles are symmetric in size and shape. Brain: No intracranial bleeds or masses. There is mild cerebral volume loss for age, with resultant ventricular and sulcal prominence. There are periventricular and deep white matter chronic small vessel ischemic changes. There is intracranial internal carotid artery atherosclerosis. Skull and face: There is a right parietal soft tissue contusion and moderate sized acute subscalp hematoma. Remote right frontal craniotomy. Calvarium and visualized facial bones appear intact, without suspicious lesions. Sinuses: Visualized sinuses and mastoids are clear. IMPRESSION: 1. No acute intracranial abnormalities. 2. Mild cerebral volume loss and chronic microvascular ischemic changes. 3. Remote postsurgical change. 4. Right parietal scalp contusion and moderate-sized acute subscalp hematoma. Dictated by: Taylor Mcclain M.D. on 02/10/2024 at 13:15 Approved by: Taylor Mcclain M.D. on 02/10/2024 at 13:20
[2024-02-10] MEDS: ONDANSETRON 4 MG/2 ML INJ IV ×2 (14:04→15:13)
--- NOTE | 2024-02-10 14:53 | ED_ITS ---
HPI - Fall General Chief Complaint: Fall Stated Complaint: Fall Time Seen by Provider: 02/10/24 14:52 Source: patient Mode of arrival: Family Vehicle History of Present Illness HPI Narrative: Patient is a 68-year-old female with out significant past medical history presenting today after ground level fall. She admits that she was celebrating last night with her 2 sons drinking alcohol they report that she opened a closet tripped and fell backwards hitting her head. She does have a small abrasion where there was obviously some bleeding. This morning she continues to have headache and nausea. No other injury from the fall. She has not on anticoagulation medication. She denies any sort of abdominal pain but still feeling bit nauseous. Related Data Home Medications Medication Instructions Recorded Confirmed biotin 1,000 mcg chewable tablet 1,000 mcg PO DAILY 09/03/20 12/29/22 calcium carbonate 500 mg-vitamin 1 tab PO DAILY ##0 09/13/20 12/29/22 D3 3.125 mcg (125 unit) tablet multivitamin-ferrous 1 tab PO DAILY ##0 09/13/20 12/29/22 fumarate-folic acid 18 mg-400 mcg tablet (Multi Complete with Iron) seufzhkbuvp-[id number]-vitC 1 cap PO DAILY 10/01/20 12/29/22 capsule (Glucosamine Complex-MSM capsule) Previous Rx's Medication Instructions Recorded aspirin 81 mg tablet,delayed 81 mg PO BID #30 tabs 10/10/20 release ondansetron 4 mg disintegrating 4 mg PO Q8H PRN nausea and 02/10/24 tablet vomiting #10 tabs Allergies Allergy/AdvReac Type Severity Reaction Status Date / Time morphine AdvReac Intermediate Nausea Verified 02/10/24 13:15 Patient History Medical History Hx of migraine headaches Osteoporosis HTN (hypertension) Hepatitis Ringing in ears Osteopenia Brain aneurysm (~1985) Primary osteoarthritis of right hip History of colon polyps Former smoker Surgical History History of total right hip arthroplasty (10/10/20) H/O wrist surgery History of History of brain surgery (~1985) History of colonoscopy (~09/13/20) Social History household members: spouse Smoking Status: Former smoker second hand exposure: No alcohol intake: current substance use type: does not use Smoking Status: Former smoker alcohol intake frequency: 3 or more drinks per day Substance Use Type: marijuana Exam Initial Vital Signs Initial Vital Signs: Vital Signs Temperature 98.7 F 02/10/24 13:12 Pulse Rate 95 H 02/10/24 13:12 Respiratory Rate 16 02/10/24 13:12 Blood Pressure 176/80 H 02/10/24 13:12 Pulse Oximetry 99 02/10/24 13:12 Oxygen Delivery Method Room Air 02/10/24 13:12 GENERAL: Alert pleasant 68-year-old HEENT: Head posterior abrasions no obvious laceration,EOMI, pupils reactive, face symmetric, moist mucous membranes NECK: No vertebral tenderness no step-off CARDIOVASCULAR: Regular rate and rhythm without murmurs, rubs or gallops. RESPIRATORY: Breath sounds equal bilaterally, no wheezes rales or rhonchi. ABDOMEN: Soft, nontender. Normoactive bowel sounds all 4 quadrants. No guarding or rebound. EXTREMITIES: Normal range of motion, no clubbing or edema. Neurovascularly intact. Pelvis stable NEUROLOGICAL: Alert and oriented x4.Normal gait and speech. Cranial nerves II through XII grossly intact. SKIN: Warm, dry, no laceration, no petechiae, no rashes or lesions. Course Orders Ordered: ED Orders 02/10/24 13:15 CBC Auto Diff [Complete Blood Count AUTO DIFF] Stat CMP [Comprehensive Metabolic Panel] Stat Lipase Stat 02/10/24 13:29 CT cervical spine wo con Stat CT head/brain wo con Stat Discontinued Medications Sodium Chloride (Normal Saline 0.9%) 1,000 mls @ 1,000 mls/hr IV BOLUS ONE Stop: 02/10/24 15:57 Last Infusion: 02/10/24 15:50 Dose: Infused Documented By: Admin: 02/10/24 15:13 Dose: 1,000 mls/hr Documented By: BS Ondansetron HCl (Ondansetron 4 Mg/2 Ml Inj) 4 mg IV NOW ONE Stop: 02/10/24 14:04 Last Admin: 02/10/24 14:04 Dose: 4 mg Documented By: RL Ondansetron HCl (Ondansetron 4 Mg/2 Ml Inj) 4 mg IV NOW ONE Stop: 02/10/24 14:59 Last Admin: 02/10/24 15:13 Dose: 4 mg Documented By: GERARDO Vital Signs Vital signs: Vital Signs - 8 hr 02/10/24 13:12 02/10/24 15:36 Temperature 98.7 F Pulse Rate 95 H 78 Respiratory Rate 16 Blood Pressure 176/80 H 159/76 H Pulse Oximetry 99 98 Oxygen Delivery Method Room Air Room Air MDM - Fall Lab Data 02/10/24 13:15 02/10/24 13:15 Labs: Lab Results 02/10/24 Range/Units 13:15 WBC 7.7 (4.5-11.0) X10^3/uL RBC 4.30 (4.0-5.2) X10^6/uL Hgb 13.7 (12.0-16.0) g/dL Hct 40.5 (36-46) % MCV 94.3 (80-100) fL MCH 31.8 (26-34) PG MCHC 33.7 (30-36) % RDW 12.2 (11.6-14.8) % Plt Count 296 (150-400) X10^3/uL Neut % (Auto) 69.9 (50-75) % Lymph % (Auto) 24.8 L (25-40) % Stanly % (Auto) 4.3 (3-14) % Eos % (Auto) 0.5 L (2-4) % Baso % (Auto) 0.5 (0-2) % Neut # (Auto) 5400 (6840-2509) /uL Lymph # (Auto) 1900 (7789-6679) /uL Stanly # (Auto) 300 (0-900) /uL Eos # (Auto) 0 (0-450) /uL Baso # (Auto) 0 (0-100) /uL Sodium 142 (137-145) mmol/L Potassium 4.0 (3.4-5.1) mmol/L Chloride 111 H (98-107) mmol/L Carbon Dioxide 24 (22-32) mmol/L BUN 15 (7-17) mg/dL Creatinine 0.75 (0.52-1.04) mg/dL Estimated GFR > 60 (>60) mL/min BUN/Creatinine Ratio 20.0 (6-22) Glucose 123 H (80-110) mg/dL Calcium 8.7 (8.4-10.2) mg/dL Total Bilirubin 0.6 (0.2-1.3) mg/dL AST 53 H (14-36) IU/L ALT 21 (<35) IU/L Alkaline Phosphatase 79 (38-126) U/L Total Protein 7.7 (6.3-8.2) g/dL Albumin 4.6 (3.5-5.0) g/dL Globulin 3.1 (1.7-4.1) g/dL Albumin/Globulin Ratio 1.5 (1.0-2.8) Lipase 73 (23-300) U/L Imaging Data CT - cervical spine: Radiologist's Impression: PROCEDURE: CT CERVICAL SPINE WO CON INDICATIONS: fall,head injury,neck pain TECHNIQUE: Noncontrast 3 mm thick sections acquired from the skull base to the T4 level. Sagittal and coronal reformats were then constructed. For radiation dose reduction, the following was used: automated exposure control, adjustment of mA and/or kV according to patient size. COMPARISON: None. FINDINGS: Image quality: Excellent. Bones: No fractures or dislocations. Loss of normal cervical lordosis. Mild levoscoliosis. There is grade 1 anterolisthesis of C4 on C5 and trace anterolisthesis of C3 on C4. Multilevel degenerative disc disease, moderate at C5-C6 and C6-C7, mild at other levels. Severe bilateral facet arthropathy, most pronounced at C2-C3, C3- C4 and C4-C5. 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 Soft tissues: Prevertebral soft tissues are normal in thickness. No paravertebral hematomas. No apical pneumothoraces. IMPRESSION: 1. No displaced fracture or traumatic subluxation. 2. Spondylitic changes as described. Dictated by: Taylor Mcclain M.D. on 02/10/2024 at 13:20 Approved by: Taylor Mcclain M.D. on 02/10/2024 at 13:28 CT scan - head: Radiologist's Impression: PROCEDURE: CT HEAD/BRAIN WO CON INDICATIONS: fall,head injury,neck pain TECHNIQUE: Noncontrast 4.5 mm thick angled axial sections acquired from the foramen magnum to the vertex, with coronal and sagittal reformats. For radiation dose reduction, the following was used: automated exposure control, adjustment of mA and/or kV according to patient size. COMPARISON: None. FINDINGS: Image quality: Diagnostic. CSF spaces: Surgical changes in the right basal cyst in and sylvian fissure, probably related prior aneurysm clipping. Basal cisterns are patent. No extra-axial fluid collections. The ventricles are symmetric in size and shape. Brain: No intracranial bleeds or masses. There is mild cerebral volume loss for age, with resultant ventricular and sulcal prominence. There are periventricular and deep white matter chronic small vessel ischemic changes. There is intracranial internal carotid artery atherosclerosis. Skull and face: There is a right parietal soft tissue contusion and moderate sized acute subscalp hematoma. Remote right frontal craniotomy. Calvarium and visualized facial bones appear intact, without suspicious lesions. Sinuses: Visualized sinuses and mastoids are clear. IMPRESSION: 1. No acute intracranial abnormalities. 2. Mild cerebral volume loss and chronic microvascular ischemic changes. 3. Remote postsurgical change. 4. Right parietal scalp contusion and moderate-sized acute subscalp hematoma. Dictated by: Taylor Mcclain M.D. on 02/10/2024 at 13:15 MDM Narrative Medical decision making narrative: Patient is a 68-year-old female who admits to alcohol use presenting today with closed head injury after last night. Reports that she tripped and fell going backwards. Still having headache and nausea this morning. Imaging has been reviewed no acute intracranial hemorrhage or cervical abnormality. Blood work does not show any significant electrolyte abnormality infection or anemia. I suspect that this was an alcohol-induced fall. Had abrasion does not require any sort of repair. Discharge Plan Departure Patient Disposition: Home Clinical Impression: Closed head injury Instructions: Closed Head Injury Activity Restrictions/Additional Instructions: *You have been diagnosed with closed head injury *What to do: At this time expect headache you may feel nauseous, increase fluids as tolerated *Continue to take medications as directed Zofran 4 mg every 8 hours if needed for nausea or vomiting *Follow up with your primary care provider in 2-3 days or call [phone] *Return to ER if you should have persistent vomiting increasing ball [or] any new, worsening or concerning symptoms Prescriptions: New ondansetron 4 mg tablet,disintegrating 4 mg PO Q8H PRN (Reason: nausea and vomiting) Qty: 10 0RF No Action biotin 1,000 mcg tablet,chewable 1,000 mcg PO DAILY calcium carbonate-vitamin D3 500 mg(1,250mg) -125 unit Tablet 1 tab PO DAILY Qty: 0 Multi Complete with Iron 18-400 mg-mcg Tablet 1 tab PO DAILY Qty: 0 Glucosamine Complex-MSM Capsule 1 cap PO DAILY aspirin 81 mg Tablet,Delayed Release (Dr/Ec) 81 mg PO BID Qty: 30 0RF Referrals: Saray Lopez MD [Primary Care Provider] - Stand Alone Forms: Patient Portal/API
[2024-02-10 15:03] LABS: Add Manual Diff / Slide Review NO; Basophils Absolute Auto 0 /uL (0-100); Basophils Percent Auto 0.5 % (0-2); Eosinophils Absolute Auto 0 /uL (0-450); Eosinophils Percent Auto 0.5 % (2-4); Hematocrit 40.5 % (36-46); Hemoglobin 13.7 g/dL (12.0-16.0); Lymphocytes Absolute Auto 1900 /uL (1100-4500); Lymphocytes Percent Auto 24.8 % (25-40); Mean Corpuscular HGB Conc 33.7 % (30-36); Mean Corpuscular Hemoglobin 31.8 PG (26-34); Mean Corpuscular Volume 94.3 fL (80-100); Monocytes Absolute Auto 300 /uL (0-900); Monocytes Percent Auto 4.3 % (3-14); Neutrophils Absolute Auto 5400 /uL (1500-7000); Neutrophils Percent Auto 69.9 % (50-75); Platelet Count 296 X10^3/uL (150-400); Red Cell Distribution Width 12.2 % (11.6-14.8); White Blood Cell Count 7.7 X10^3/uL (4.5-11.0)
[2024-02-10 15:09] LABS: Alanine Aminotransferase 21 IU/L (<35); Albumin 4.6 g/dL (3.5-5.0); Albumin Globulin Ratio 1.5 (1.0-2.8); Alkaline Phosphatase 79 U/L (38-126); Aspartate Aminotransferase 53 IU/L (14-36); Bilirubin Total 0.6 mg/dL (0.2-1.3); Blood Urea Nitrogen 15 mg/dL (7-17); Calcium 8.7 mg/dL (8.4-10.2); Carbon Dioxide 24 mmol/L (22-32); Chloride 111 mmol/L (98-107); Estimated Glomerular Filt Rate > 60 mL/min (>60); Globulin 3.1 g/dL (1.7-4.1); Glucose 123 mg/dL (80-110); HEMOLYSIS 18 (0-50); Lipase 73 U/L (23-300); Sodium 142 mmol/L (137-145); Total Protein 7.7 g/dL (6.3-8.2)
[2024-02-10] MEDS: SODIUM CHLORIDE 0.9% 1,000 ML 1000 ML IV (15:13)
[2024-02-10 15:36] VITALS: BP 159/76; PULSE 78; O2SAT 98
== END 2024-02-10 15:51 | disposition home or self-care (01) ==
PROVIDERS: Emergency Provider Emergency Medicine; PCP Family Medicine
DX: S09.90XA Unspecified injury of head, initial encounter (principal); M54.2 Cervicalgia; W01.0XXA Fall on same level from slipping, tripping and stumbling without subsequent striking against object, initial encounter
CPT/HCPCS: 36415; 70450; 72125; 80053; 83690; 85025; 96361; 96374; 96376; 99284; J2405

== ENCOUNTER → 2024-02-29 08:28 | Outpatient (CLI) | payer MEDICARE, OTHER, SELFPAY ==
[2023-12-23 09:09] VITALS: BMI 22.2
[2024-02-29 09:50] LABS: Alanine Aminotransferase 21 IU/L (<35); Albumin 4.1 g/dL (3.5-5.0); Albumin Globulin Ratio 1.4 (1.0-2.8); Alkaline Phosphatase 73 U/L (38-126); Aspartate Aminotransferase 27 IU/L (14-36); BUN Creatinine Ratio 21.4 (6-22); Bilirubin Total 0.8 mg/dL (0.2-1.3); Blood Urea Nitrogen 18 mg/dL (7-17); Carbon Dioxide 27 mmol/L (22-32); Chloride 108 mmol/L (98-107); Cholesterol 215 mg/dL (140-199); Estimated Glomerular Filt Rate > 60 mL/min (>60); Glucose 92 mg/dL (80-110); HDL Cholesterol 84 mg/dL (40-60); HEMOLYSIS < 15 (0-50); LDL Cholesterol Calculated 115 mg/dL (<100); Potassium 4.4 mmol/L (3.4-5.1); Sodium 138 mmol/L (137-145); Total Protein 7.1 g/dL (6.3-8.2); Triglycerides 80 mg/dL (35-150)
[2024-02-29 09:52] LABS: Creatinine Urine Random 95.18 mg/dL
[2024-02-29 09:55] LABS: Microalbumin Urine Random < 0.6 mg/dL (0-1.6)
== END ==
PROVIDERS: PCP Family Medicine; Referring Provider Family Medicine; Visit Provider Family Medicine
DX: Z13.1 Encounter for screening for diabetes mellitus (principal); R74.8 Abnormal levels of other serum enzymes; E78.5 Hyperlipidemia, unspecified; I10 Essential (primary) hypertension
CPT/HCPCS: 36415; 80053; 80061; 82043; 82570; 83036

== ENCOUNTER → 2024-04-15 10:20 | Outpatient (CLI) | payer MEDICARE, OTHER, SELFPAY ==
[2023-12-23 09:09] VITALS: BMI 22.2
--- NOTE | 2024-04-15 10:22 | DI.RAD.S_ITS ---
PROCEDURE: XR HIP W PEL IF DONE LT 2V INDICATIONS: left hip pain TECHNIQUE: AP pelvis with lateral view(s) of the left hip(s). COMPARISON: [facility], , XR HIP W PEL IF DONE RT 2V, 09/03/2020, 14:32. FINDINGS: Bones: No fractures or dislocations. Pelvic ring appears intact. No suspicious bony lesions. Right hip arthroplasty without complication. Moderate osteoarthritis of the left hip. Mild osteoarthritis of both SI joints. 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 Degenerative disease of the pubic symphysis. Soft tissues: The visualized bowel gas pattern is normal. No suspicious soft tissue calcifications. IMPRESSION: 1. No acute bony abnormality. 2. Moderate osteoarthritis of the left hip joint. 3. Normal appearing right hip arthroplasty. Dictated by: Adrian Bain M.D. on 04/15/2024 at 14:44 Approved by: Adrian Bain M.D. on 04/15/2024 at 14:48
== END ==
PROVIDERS: PCP Family Medicine; Referring Provider Family Medicine; Visit Provider Family Medicine
DX: M16.12 Unilateral primary osteoarthritis, left hip (principal); M25.552 Pain in left hip; Z96.641 Presence of right artificial hip joint
CPT/HCPCS: 73502

== ENCOUNTER → 2024-12-28 13:49 | Outpatient (CLI) | payer MEDICARE, OTHER, SELFPAY ==
[2024-12-21 13:10] VITALS: BMI 22.2
[2024-12-28 14:13] LABS: Appearance Urine UA CLEAR; Bilirubin Urine UA NEGATIVE (NEGATIVE); Color Urine UA YELLOW; Glucose Urine UA NEGATIVE (Negative); Ketones Urine UA 1+ (NEGATIVE); Leukocyte Esterase Urine UA 1+ (NEGATIVE); Nitrite Urine UA NEGATIVE (Negative); Occult Blood Urine UA TRACE-INTACT (Negative); Protein Urine UA NEGATIVE (Negative); Specific Gravity Urine UA >=1.030 (1.000-1.035); Urobilinogen Urine UA 0.2 E.U./dL (0.2)
[2024-12-28 14:15] LABS: Urine Volume 10mL (spun); pH Urine UA 5.5 (4.5-8.0)
[2024-12-28 14:16] LABS: Bacteria Urine None Seen; Culture Indicated Urine Specimen Cultured; RBC Urine 0-1/HPF (0-5/HPF); Squamous Epithelial Cell Urine 1-5 /HPF (0-5/HPF); WBC Urine 5-10/HPF (0-5/HPF)
--- NOTE | 2024-12-28 14:18 | EKG_ITS ---
[facility] [id number] [place] [address] Test Date: 2024-12-28 Pat Name: Tootie Mead Department: Room: Gender: Female [employer]: : 1955 Requested By: Order Number: [id number] Reading MD: Darryl Ragland Measurements Intervals [place] Rate: 89 P: MS: 102 QRS: 31 QRSD: 140 T: 233 QT: 424 QTc: 515 Interpretive Statements Sinus rhythm with short MS Left ventricular hypertrophy with QRS widening and repolarization abnormality ( Sokolow-Dumas ) Inferior infarct , age undetermined Electronically Signed On 12-28-2024 17:41:05 PDT by Darryl Ragland
[2024-12-28 14:24] LABS: Add Manual Diff / Slide Review NO; Basophils Absolute Auto 0 /uL (0-100); Basophils Percent Auto 0.8 % (0-2); Eosinophils Absolute Auto 100 /uL (0-450); Hematocrit 40.2 % (36-46); Hemoglobin 13.7 g/dL (12.0-16.0); Lymphocytes Absolute Auto 1700 /uL (1100-4500); Lymphocytes Percent Auto 29.3 % (25-40); Mean Corpuscular HGB Conc 34.1 % (30-36); Mean Corpuscular Hemoglobin 32.4 PG (26-34); Monocytes Absolute Auto 400 /uL (0-900); Monocytes Percent Auto 6.4 % (3-14); Neutrophils Absolute Auto 3600 /uL (1500-7000); Neutrophils Percent Auto 62.5 % (50-75); Platelet Count 286 X10^3/uL (150-400); Red Blood Cell Count 4.24 X10^6/uL (4.0-5.2); Red Cell Distribution Width 12.3 % (11.6-14.8); White Blood Cell Count 5.8 X10^3/uL (4.5-11.0)
[2024-12-28 14:31] LABS: Hemoglobin A1C% w Est Avg Glu 4.8 % (4.0-6.0)
[2024-12-28 14:44] LABS: BUN Creatinine Ratio 24.3 (6-22); Blood Urea Nitrogen 18 mg/dL (7-17); Calcium 9.3 mg/dL (8.4-10.2); Carbon Dioxide 25 mmol/L (22-32); Chloride 103 mmol/L (98-107); Estimated Glomerular Filt Rate > 60 mL/min (>60); Glucose 144 mg/dL (70-99); HEMOLYSIS < 15 (0-50); Potassium 4.3 mmol/L (3.4-5.1); Sodium 137 mmol/L (137-145)
== END ==
PROVIDERS: PCP Family Medicine; Referring Provider Orthopaedic Surgery; Visit Provider Orthopaedic Surgery
DX: Z01.818 Encounter for other preprocedural examination (principal); R73.9 Hyperglycemia, unspecified; Z01.812 Encounter for preprocedural laboratory examination; N39.0 Urinary tract infection, site not specified
CPT/HCPCS: 36415; 80048; 81001; 83036; 85025; 87086; 93005

== ENCOUNTER → 2025-03-07 12:50 | Outpatient (CLI) | payer MEDICARE, OTHER, SELFPAY ==
[2024-12-21 13:10] VITALS: BMI 22.2
--- NOTE | 2025-03-07 12:51 | DI.MG.S_ITS ---
MM screening mammo BI: 03/07/2025. BI-RADS: 1 CLINICAL: 69-year old female for bilateral screening mammogram. Tyrer-Cuzick lifetime risk of 2.5%. No personal or first-degree family history of breast cancer. PRIOR EXAMS 02/04/2024, 02/02/2023, 09/25/2020, 07/19/2019. MAMMOGRAPHY TECHNIQUE: 2D and 3D (tomosynthesis) digital mammographic views obtained, with additional images as needed for full coverage. Current study was also evaluated with a Computer Aided Detection (CAD) system. DENSITY B. There are scattered areas of fibroglandular density. MAMMOGRAPHY FINDINGS Bilateral: No suspicious mass, asymmetry, microcalcification, or other abnormality seen. No significant change from comparison. IMPRESSION: * No evidence of malignancy. RECOMMENDATIONS Bilateral * Annual screening mammography. OVERALL ASSESSMENT CATEGORY BI-RADS-1: Negative. The [employer] recommends annual screening mammography beginning at age 40 for women with average risk of breast cancer. ELECTRONICALLY SIGNED: Shaila Silva M.D. on 03/07/2025 at 11:25:19 PM PT Interpreting Station ID: [id number]
--- NOTE | 2025-03-07 14:01 | DI.RAD.S_ITS ---
PROCEDURE: XR DEXA AXIAL SKELETON INDICATIONS: screening COMPARISON: [facility], , XR DEXA AXIAL SKELETON, 09/25/2020, 13:27. FINDINGS: Lumbar Spine: Bone mineral density 1.044 (previously 1.036) g/cm2, T score 0.2 (previously -1.2). Left Forearm: Bone mineral density 0.648 g/cm2, T score -0.8. (T score greater or equal to -1.0 to: NORMAL) (T score from -1.1 to -2.4: OSTEOPENIA) (T score less than or equal to -2.5: OSTEOPOROSIS) IMPRESSION: Normal--- recommend repeat DEXA as clinically indicated. Follow-up guidelines as follows: Osteoporosis: Consider a repeat DEXA and Vertebral Fracture Assessment (VFA) exam in 2 years or sooner if medically necessary, to reassess this patient's status. Osteopenia: Consider a repeat DEXA in 2-3 years to reassess this patient's status, or if there is a new clinical indication. Normal: Consider a repeat DEXA in 5 years or sooner, or if there is a new clinical indication. All treatment decisions require clinical judgment and consideration of individual patient factors, including patient preferences, comorbidities, previous drug use, risk factors not captured in the FRAX model (e.g., frailty, falls, vitamin D deficiency, increased bone turnover, interval significant decline in bone density ) and possible under- or over-estimation of fracture risk by FRAX. In addition, the NOF Guide recommends that FDA-approved medical therapies be considered in postmenopausal women and men age >= 50 years with a: * Hip or vertebral (clinical or morphometric) fracture * T-score of <=-2.5 at the spine or hip * Ten-year fracture probability by FRAX of >= 3% for hip fracture or >=20% for major osteoporotic fracture. Dictated by: Yazan Ravi M.D. on 03/07/2025 at 19:10 Approved by: Yazan Ravi M.D. on 03/07/2025 at 19:13
== END ==
LOC: MAMMO 12:50
PROVIDERS: PCP Family Medicine; Referring Provider Family Medicine; Visit Provider Family Medicine
DX: Z12.31 Encounter for screening mammogram for malignant neoplasm of breast (principal); M85.89 Other specified disorders of bone density and structure, multiple sites
CPT/HCPCS: 77063; 77067; 77080; 77081